=== PATIENT | female | born 1980 | race Caucasian/White ===

== ENCOUNTER → 2017-05-23 | Outpatient (CLI) | payer OTHER ==
[~2017-05-23] MED LIST: AMOXICILLIN500 MG PO; IMITREX100 MG PO; LEXAPRO20 MG PO; MOTRIN800 MG PO; NAPROSYN500 MG PO; PERCOCET 5/31 TABLET PO; PRENATAL TABLE1 EAC3 PO; PROGESTERONE50 MG/ML IM; TUMS500 MG PO; TYLENOL REGULA325 MG PO; ZANTAC150 MG PO; ZOFRAN ODT4 MG PO; ZOFRAN ODT8 MG PO
== END | disposition home or self-care (01) ==
LOC: CDC 11:56
DX: M25.531 Pain in right wrist (principal); M67.431 Ganglion, right wrist
CPT/HCPCS: 93000